=== PATIENT | female | born 1955 | race African-American/Black ===

== ENCOUNTER → 2025-07-06 | Outpatient (CLI) | payer MEDICARE, MEDICAID ==
[~2025-07-06] MED LIST: AMLO10TA80 PO; FLUT1AER INH; LIP40 PO
== END | disposition home or self-care (01) ==
LOC: CT 08:20 → MERGE 10:00
PROVIDERS: ATTEND Neurological Surgery
DX: C71.9 Malignant neoplasm of brain, unspecified (principal); R51.9 Headache, unspecified